=== PATIENT | male | born 1945 | race Caucasian/White ===

== ENCOUNTER 2016-11-25 06:38 | Observation (INO) | payer MEDICARE, BC ==
[2016-11-18 16:12] LABS: BASOPHILS 0.3 %; BASOPHILS ABSOLUTE 0.02 10/3/uL (0.0-0.16); EOSINOPHILS 3.5 %; EOSINOPHILS ABSOLUTE 0.24 10/3/uL (0.0-0.53); HEMATOCRIT 45.9 % (40.0-51.0); HEMOGLOBIN 15.1 g/dL (13.6-17.8); IMMATURE GRANULOCYTES 0.1 %; IMMATURE GRANULOCYTES ABSOLUTE 0.01 10/3/uL (0.0-0.11); LYMPHOCYTES 21.5 %; LYMPHOCYTES ABSOLUTE 1.47 10/3/uL (0.67-4.30); MEAN CORPUS HGB CONC 32.9 g/dL (32.0-36.0); MEAN CORPUSCULAR HEMOGLOB 29.8 pg (26.0-34.0); MEAN CORPUSCULAR VOLUME 90.7 fL (80-100); MEAN PLATELET VOLUME 10.7 fL (9.2-13.0); MONOCYTES 6.7 %; MONOCYTES ABSOLUTE 0.46 10/3/uL (0.21-1.20); NEUTROPHILS 67.9 %; NEUTROPHILS ABSOLUTE 4.64 10/3/uL (2.02-8.40); PLATELET COUNT 190 10/3/uL (150-400); RBC DISTRIBUTION WIDTH 13.1 % (12.0-16.0); RED CELL COUNT 5.06 10/6/uL (4.7-6.1); WHITE BLOOD CELLS 6.8 10/3/uL (4.5-10.5)
[2016-11-18 16:14] LABS: MANUAL DIFF NO %
[2016-11-18 16:22] LABS: CALCIUM, SERUM 8.9 MG/DL (8.5-10.4); CHLORIDE, SERUM 106 MMOL/L (96-112); CO2 (CARBON DIOXIDE) 29 MMOL/L (24-34); GFR AFRICAN AMERICAN 59 ML/MIN (>=60); GFR NON AFRICAN AMERICAN 51 ML/MIN (>=60); GLUCOSE, SERUM 87 MG/DL (60-99); POTASSIUM, SERUM 4.2 MMOL/L (3.5-5.3); SODIUM, SERUM 138 MMOL/L (135-148)
[2016-11-18 16:24] LABS: BUN (BLOOD UREA NITROGEN) 23 MG/DL (6-23)
--- NOTE | ~2016-11-25 | OP ---
Record Of Operation [facility] [address] [place]. [address] NAME: JALEN REYES : 49 STATUS : REG [facility] [place] PAT#: [id number] AGE: 71 ADM/REG DATE : 11/25/16 MR#: [id number] REPORT SERV DATE: 11/25/16 DICTATED BY: ESME SHIPLEY DATE: 11/25/16 REPORT STATUS : Draft TRANSCRIBED BY: MODL DATE: 11/25/16 DATE OF PROCEDURE: 11/25/2016 PREOPERATIVE DIAGNOSES: 1. Benign prostatic hyperplasia with obstruction. 2. Urinary retention. POSTOPERATIVE DIAGNOSIS: 1. Benign prostatic hyperplasia with obstruction. 2. Urinary retention. PROCEDURE PERFORMED: Transurethral resection of the prostate. SURGEON: Esme Shipley M.D. ANESTHESIA: General. COMPLICATIONS: None. ESTIMATED BLOOD LOSS: 300 mL. DRAINS: 22-Mozambican 3-way Robbins catheter. SPECIMEN: Prostate chips. INDICATION: Mr. Reyes is a 71-year-old, with chronic problems with BPH with obstruction. Urinary symptoms worsened recently despite Flomax. He is intolerant of finasteride. Postvoid residual in the office is 900 mL. He has had prior negative prostate needle biopsy and PSA is stable. He presents for transurethral resection of the prostate. TECHNIQUE: Levaquin was given preop. He was brought to the operating room, general anesthesia was administered. Genitals and perineum were prepped and draped in the lithotomy position in sterile fashion. Digital rectal exam showed a 60 to 70 g palpably benign prostate. The urethra was dilated to 28-Mozambican with Brando sounds. A rigid scope was passed, there was trilobar BPH with a high bladder neck. The bladder was severely trabeculated. UOs were obscured. The cystoscope was removed and placed a 26-Mozambican resectoscope sheath. Glycine was used for irrigation. Transurethral electrosurgical resection of the prostate was performed. First I resected the midline/median lobe tissue from the bladder neck down to the verumontanum. Next, the left lateral lobe was smaller than the right. The right lateral lobe was resected from 1 o'clock position down to the 5 o'clock position. No resection was carried out beyond the verumontanum. Next, the contralateral lobe was resected in a similar fashion. Approximate resection time was an hour and 15 minutes. Chips were evacuated with the Ellik. Hemostasis was obtained with the roller ball. The left ureteral orifice was visible and effluxing clear. The right ureteral orifice was not visible. It appeared to be within the diverticulum. The bladder was filled, the resectoscope was removed, and placed a 22-Mozambican 3-way Robbins catheter with 40 mL Record Of Operation [address] [place]. [address] NAME: JALEN REYES : 49 STATUS : REG [facility] [place] PAT#: [id number] AGE: 71 ADM/REG DATE : 11/25/16 MR#: [id number] REPORT SERV DATE: 11/25/16 DICTATED BY: ESME SHIPLEY DATE: 11/25/16 REPORT STATUS : Draft TRANSCRIBED BY: ESTIVEN DATE: 11/25/16 in the balloon. The catheter irrigated well. CBI was initiated. B and O suppository were given. He was taken to the recovery room in satisfactory condition. The plan is for 23 hours of CBI and a Robbins catheter for three to five days. [facility] Esme Shipley M.D. / [id number] CC: Cheyanne Donovan Jr., M.D.
[~2016-11-25 06:38] MED LIST: CLARIT10 PO; FISH-EPA1000 MG PO; FLOMAX4 PO; LYSINE1000 MG PO; MULTIPLE VIT PO; PRAV10 PO
[2016-11-25 12:54] LABS: HEMATOCRIT 45.1 % (40.0-51.0); HEMOGLOBIN 14.8 g/dL (13.6-17.8)
[2016-11-26 04:36] LABS: HEMOGLOBIN 12.9 g/dL (13.6-17.8)
[2016-11-26 04:39] LABS: HEMATOCRIT 38.9 % (40.0-51.0)
[2016-11-26] MEDS ORDERED: NORCO1 TA1 PO (11:18)
[2016-11-26] MEDS ORDERED: DSS PO (11:18)
[2016-11-26] MEDS ORDERED: CIP5 PO (11:18)
== END 2016-11-26 13:19 | disposition home or self-care (01) ==
LOC: SDC 06:38 → 4SO 12:12
PROVIDERS: Urology
PROC: 0VT08ZZ Resection of Prostate, Via Natural or Artificial Opening Endoscopic (ICD-10-PCS; principal; 2016-11-25 07:45)
DX: C61 Malignant neoplasm of prostate (principal); G47.33 Obstructive sleep apnea (adult) (pediatric); Z99.89 Dependence on other enabling machines and devices; Z88.0 Allergy status to penicillin; Z79.899 Other long term (current) drug therapy; Z98.890 Other specified postprocedural states
CPT/HCPCS: 80048; 84295; 85014; 85018; 85025; 88305; 93005; A9270-GY; G0378; J2250; J2270; J2405; J2710; J3010